=== PATIENT | male | born 1995 | race Native Hawaiian/Other Pacific Islander ===

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

== ENCOUNTER 2017-04-24 17:26 | Emergency (ER) | payer BC ==
[~2017-04-24] VITALS: Ht 177.8 cm; Wt 86.2 kg
[2017-04-24 20:24] VITALS: BP 135/70; TEMP 97.7
== END 2017-04-24 20:38 | disposition home or self-care (01) ==
LOC: ED 17:26
DX: S20.212A Contusion of left front wall of thorax, initial encounter (principal); S20.211A Contusion of right front wall of thorax, initial encounter; S30.1XXA Contusion of abdominal wall, initial encounter; V50.0XXA Driver of pick-up truck or van injured in collision with pedestrian or animal in nontraffic accident, initial encounter
CPT/HCPCS: 99283

== ENCOUNTER 2017-07-21 21:10 | Emergency (ER) | payer BC ==
[~2017-07-21] VITALS: Ht 167.6 cm; Wt 86.2 kg
[2017-07-21 22:10] LABS: PLATELET COUNT 188 K/uL (142-355)
[2017-07-21 22:43] VITALS: BP 117/65; TEMP 98.4
== END 2017-07-21 22:43 | disposition home or self-care (01) ==
LOC: ED 21:10
DX: B34.9 Viral infection, unspecified (principal); J06.9 Acute upper respiratory infection, unspecified
CPT/HCPCS: 36415; 85027; 87081; 87804; 87880; 99283